=== PATIENT | female | born 1955 | race Caucasian/White ===

== ENCOUNTER → 2020-06-19 10:59 | Outpatient (CLI) | payer MEDICARE, SELFPAY ==
--- NOTE | 2020-06-19 | DI.MRI.S_ITS ---
PROCEDURE: MR KNEE RT WO CON INDICATIONS: Unilateral primary osteoarthritis, right knee TECHNIQUE: Noncontrast sagittal PD fast spin echo and T2 fast spin echo with fat saturation, sagittal 3-D FLASH with fat saturation; coronal T1 spin echo and PD fast spin echo with fat saturation, and axial PD fast spin echo with fat saturation through the knee. COMPARISON: None. FINDINGS: Image quality: Excellent. Menisci: There is peripheral displacement of medial meniscus bowing medial collateral ligament. Complex tear is seen involving body and posterior horn of medial meniscus extending to both superior and inferior articulating surfaces. There is no evidence of focal lateral meniscal tear. The meniscal root ligaments appear intact. Cruciate ligaments: Myxoid degenerative changes versus low-grade intrasubstance partial-thickness tear involving anterior cruciate ligament is seen. No full-thickness ACL rupture. PCL is intact. Medial structures: There is low-grade MCL sprain. The posterior oblique ligament, semimembranosus tendon insertions, oblique popliteal ligament, and meniscocapsular junction appear intact. Visualized portions of the pes anserinus tendons appear normal. No abnormal bursal fluid. Lateral structures: The lateral collateral ligament, long and short heads of the biceps femoris tendon appear intact. The popliteus tendon appears normal; the popliteofibular ligament appears intact. The posterosuperior and anteroinferior popliteomeniscal fascicles appear intact. The arcuate and fabellofibular ligaments appear intact, on either side of the lateral inferior geniculate artery. Iliotibial band appears normal. Anterior structures: The quadriceps and patellar tendons appear intact. Patellar alignment is normal. No femoral trochlear dysplasia or ventral trochlear prominence. No edema in the infrapatellar fat pad. Bones and cartilage: Moderate tricompartmental osteoarthritis and chondromalacia is seen most prominent in medial femoral tibial compartment. Joint space: There is small amount of joint fluid. No Mckeon's cyst. Normal appearing synovial plicae are incidentally noted. IMPRESSION: 1. 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 No acute fracture or dislocation. 2. Complex tear involving body and posterior horn of medial meniscus extending to both superior and inferior articulating surfaces. Peripheral displacement of medial meniscus bowing medial collateral ligament. No focal lateral meniscal tear. 3. Degenerative changes in anterior cruciate ligament. No full-thickness ACL rupture. PCL is intact. 4. Low-grade MCL sprain. Dictated by: Hakeem Timmons M.D. on 06/19/2020 at 13:28 Approved by: Hakeem Timmons M.D. on 06/19/2020 at 13:32
== END ==
PROVIDERS: PCP Nurse Practitioner Family; Referring Provider Orthopaedic Surgery; Visit Provider Orthopaedic Surgery
DX: M17.11 Unilateral primary osteoarthritis, right knee (principal); S83.231A Complex tear of medial meniscus, current injury, right knee, initial encounter; M94.261 Chondromalacia, right knee; S83.411A Sprain of medial collateral ligament of right knee, initial encounter
CPT/HCPCS: 73721